=== PATIENT | male | born 1940 | race Caucasian/White ===

== ENCOUNTER → 2019-06-23 09:35 | Outpatient (BNVA) | payer MEDICARE, OTHER, SELFPAY | PROVIDERS: Family Provider Family Medicine; Referring Provider Family Medicine; Visit Provider Specialist | DX: M25.561 Pain in right knee (principal); M17.11 Unilateral primary osteoarthritis, right knee | CPT/HCPCS: 73560; 73565 ==

== ENCOUNTER 2019-06-25 11:02 | Outpatient (CLI) | payer MEDICARE, OTHER, SELFPAY ==
--- NOTE | 2019-06-25 11:17 | CT_ITS ---
WS: [id number] CT ANGIOGRAM CEREBRAL AND CAROTID ARTERIES HISTORY: CVA TECHNIQUE: CT angiogram is performed of the carotid and cerebral arteries. During arterial injection imaging is obtained from the skull vertex to the aortic arch in 1.25 mm imaging. Coronal and sagittal reformats are submitted. Additional multi planar reformats of the carotid and cerebral arteries are submitted, MIP imaging also reviewed. NASCET criteria utilized. All CT scans at [facility] use at least one of these dose optimization techniques: automated exposure control; mA and/or kV ad justment per patient size (includes targeted exams where dose is matched to clinical indication); or iterative reconstruction. CONTRAST: Omnipaque 300; 95 mL IV. DLP: 2104.1 mGycm COMPARISON: None available. Beam hardening artifact through the anterior mediastinum from the patient's cardiac pacer/defibrillat or. Origins of the great vessels are poorly visualized. Carotid Angiogram: Right carotid: Common carotid artery: Mid to distal common carotid artery is normal caliber. Internal carotid artery: Small amount of calcified plaque at the bifurcation with no stenosis. There is additional calcification at the skull base. External carotid artery: Patent. Left carotid: Common carotid artery: Proximal common carotid artery is obscured by artifact. Mid to distal common c arotid artery is patent. Internal carotid artery: Calcified plaque is mild at the bifurcation. No significant stenosis. Additi onal calcified plaque in the ICA to the petrous ridges. External carotid artery: Patent. Right vertebral artery: Unremarkable. Left vertebral artery: Dominant vertebral artery and arises normally from the LEFT subclavian artery. Subclavian arteries: Proximal subclavian arteries are both poorly visualized due to beam hardening ar tifact through the upper thorax. No abnormality is identified. Upper thorax: Negative. Thyroid gland: Poorly visualized. Osseous structures: 5 mm anterolisthesis of C5. Vertebral bodies at the cervical thoracic junction ar e poorly visualized. CEREBRAL ANGIOGRAM: Noncontrast imaging performed through the brain. There is a prior RIGHT occipital lobe infarct. Mild chronic microvascular ischemic disease. Mild atrophy. Intracranial vertebral arteries: Normal with no significant atherosclerosis. Basilar artery: No significant stenosis or occlusion. No aneurysm. Intracranial Internal carotid arteries: Calcified plaque bilaterally through the petrous portions of the internal carotid arteries. Additional scattered plaque in the cavernous sinuses and supraclinoid carotid artery. No aneurysm or stenosis. Middle cerebral arteries: Normal. Anterior cerebral arteries and ACOM: Normal. Posterior cerebral arteries and PCOM's: Normal. Dural venous sinuses are normally enhancing. Mastoid air cells: Increased soft tissue and fluid in the RIGHT mastoid air cells. LEFT mastoid air c ells are clear. Paranasal sinuses: Septation in the RIGHT maxillary sinus. There is a small mucous retention cyst in the floor the RIGHT maxillary sinus. Calvarium: Normal. CT/CT angio headneck* [id number] IMPRESSION: 1. No significant carotid artery stenosis. There is calcified plaque at the bi furcations and also through the intracranial carotid arteries. Stenosis much le ss than 50%. 2. Unremarkable [place] of [place]. No aneurysms or occlusions. 3. Prior RIGHT occipital lobe infarct and mild chronic microvascular ischemic disease.
[2019-06-25] MEDS: iohexol 350 mg/mL 100 mL Btl IV (12:01)
== END 2019-06-25 11:03 | disposition home or self-care (01) ==
LOC: RADWPI 11:13
PROVIDERS: Family Provider Family Medicine; PCP Family Medicine; Visit Provider Family Medicine
DX: I63.9 Cerebral infarction, unspecified (principal)
CPT/HCPCS: 70496; 70498; Q9967

== ENCOUNTER 2019-06-29 13:36 | Outpatient (RCR) | payer MEDICARE, OTHER, SELFPAY | END 2019-07-24 23:59 | disposition home or self-care (01) | LOC: SPT 13:36 | PROVIDERS: Family Provider Family Medicine; PCP Family Medicine; Referring Provider Specialist; Visit Provider Specialist | DX: M17.0 Bilateral primary osteoarthritis of knee (principal); R26.89 Other abnormalities of gait and mobility; R26.81 Unsteadiness on feet | CPT/HCPCS: 97110; 97162 ==

== ENCOUNTER 2019-07-25 06:00 | Outpatient (RCR) | payer MEDICARE, OTHER, SELFPAY | END 2019-08-24 23:59 | disposition home or self-care (01) | LOC: SPT 06:00 | PROVIDERS: Family Provider Family Medicine; PCP Family Medicine; Referring Provider Specialist; Visit Provider Specialist | DX: M17.0 Bilateral primary osteoarthritis of knee (principal) | CPT/HCPCS: 97110 ==

== ENCOUNTER 2020-08-30 08:38 | Outpatient (CLI) | payer MEDICARE, OTHER, SELFPAY ==
--- NOTE | 2020-08-30 08:55 | CT_ITS ---
WS: [id number] CT HEAD WITH AND WITHOUT CONTRAST HISTORY: CVA TECHNIQUE: Noncontrast 2.5 mm axial images obtained from the vertex to the skull base. Additional saúl ging performed at 2.5 mm axial images status post IV contrast. Bone and soft tissue windows are revie wed. All CT scans at [facility] use at least one of these dose optimization techniques: a utomated exposure control; mA and/or kV adjustment per patient size (includes targeted exams where do se is matched to clinical indication); or iterative reconstruction. CONTRAST: Omnipaque 300; 95 mL IV. DLP: 1984.08 mGycm COMPARISON: 02/02/2016 No acute intracranial hemorrhage, edema or midline shift. Prior remote infarct involving the RIGHT occipital and RIGHT frontal lobe. Similar in appearance to 2015 examination. Mild chronic microvascular ischemic changes. No enhancing masses or vascular malformations. Dural venous sinuses are normally enhancing. Small caliber distal RIGHT vertebral artery but it is patent. Small amount of calcified plaque throug h the cavernous sinuses. No occlusions or aneurysm. Paranasal sinuses as visualized: Clear. Mastoid air cells: Increased fluid in mastoid air cells bilaterally. Calvarium and scalp: Intact. CT/CT head wo/w con [id number] IMPRESSION: 1. No acute intracranial hemorrhage or edema. 2. 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 3. No aneurysm or occlusion of the intracranial carotid arteries. 4. Mild atherosclerosis intracranial carotid arteries.
[2020-08-30 09:23] LABS: Blood Urea Nitrogen 16 mg/dL (8-23)
[2020-08-30] MEDS: iohexol 300 mg/mL 100 mL Btl IV (09:32)
== END 2020-08-30 08:39 | disposition home or self-care (01) ==
LOC: RADWPI 08:54
PROVIDERS: PCP Family Medicine; Visit Provider Family Medicine
DX: I63.9 Cerebral infarction, unspecified (principal); I65.23 Occlusion and stenosis of bilateral carotid arteries
CPT/HCPCS: 70470; 82565; 84520; Q9967

== ENCOUNTER → 2021-08-15 13:39 | Outpatient (BNVA) | payer MEDICARE, SELFPAY | PROVIDERS: PCP Family Medicine; Visit Provider Internal Medicine Cardiovascular Disease | DX: I25.810 Atherosclerosis of coronary artery bypass graft(s) without angina pectoris (principal); I11.0 Hypertensive heart disease with heart failure; I50.9 Heart failure, unspecified | CPT/HCPCS: 99214 ==

== ENCOUNTER 2021-09-04 06:00 | Outpatient (RCR) | payer MEDICARE, SELFPAY | END 2021-09-22 23:59 | disposition home or self-care (01) | LOC: SPT 06:00 | PROVIDERS: PCP Family Medicine; Referring Provider Family Medicine; Visit Provider Family Medicine | DX: R26.9 Unspecified abnormalities of gait and mobility (principal) | CPT/HCPCS: 97110; 97161 ==

== ENCOUNTER 2021-09-23 06:00 | Outpatient (RCR) | payer MEDICARE, SELFPAY | END 2021-10-04 23:59 | disposition home or self-care (01) | LOC: SPT 06:00 | PROVIDERS: PCP Family Medicine; Referring Provider Family Medicine; Visit Provider Family Medicine | DX: R26.9 Unspecified abnormalities of gait and mobility (principal) | CPT/HCPCS: 97110 ==

== ENCOUNTER → 2021-12-27 10:14 | Outpatient (BNVA) | payer MEDICARE, SELFPAY | PROVIDERS: PCP Family Medicine; Visit Provider Family Medicine | DX: E11.9 Type 2 diabetes mellitus without complications (principal); M54.9 Dorsalgia, unspecified; G89.29 Other chronic pain; E78.5 Hyperlipidemia, unspecified; I10 Essential (primary) hypertension; I25.810 Atherosclerosis of coronary artery bypass graft(s) without angina pectoris | CPT/HCPCS: 80053; 80061; 83036; 83721; 85025 ==

== ENCOUNTER → 2022-02-15 09:52 | Outpatient (BNVA) | payer MEDICARE, SELFPAY | PROVIDERS: PCP Family Medicine; Visit Provider Internal Medicine Cardiovascular Disease | DX: I25.810 Atherosclerosis of coronary artery bypass graft(s) without angina pectoris (principal); I25.9 Chronic ischemic heart disease, unspecified; I11.0 Hypertensive heart disease with heart failure; I50.20 Unspecified systolic (congestive) heart failure; E78.5 Hyperlipidemia, unspecified; Z95.810 Presence of automatic (implantable) cardiac defibrillator; Z87.891 Personal history of nicotine dependence | CPT/HCPCS: 93284; 99214 ==

== ENCOUNTER → 2022-04-04 09:18 | Outpatient (BNVA) | payer MEDICARE, SELFPAY | PROVIDERS: PCP Family Medicine; Visit Provider Family Medicine | DX: E78.5 Hyperlipidemia, unspecified (principal); I10 Essential (primary) hypertension; E11.9 Type 2 diabetes mellitus without complications; G89.29 Other chronic pain; I25.9 Chronic ischemic heart disease, unspecified; M54.9 Dorsalgia, unspecified | CPT/HCPCS: 80053; 80061; 83036; 83721 ==

== ENCOUNTER → 2022-08-16 09:42 | Outpatient (BNVA) | payer MEDICARE, SELFPAY | PROVIDERS: PCP Family Medicine; Visit Provider Nurse Practitioner Family | DX: I25.810 Atherosclerosis of coronary artery bypass graft(s) without angina pectoris (principal); Z95.810 Presence of automatic (implantable) cardiac defibrillator; Z87.891 Personal history of nicotine dependence; I11.0 Hypertensive heart disease with heart failure; I50.20 Unspecified systolic (congestive) heart failure; Z79.82 Long term (current) use of aspirin | CPT/HCPCS: 99214 ==

== ENCOUNTER → 2022-09-27 09:29 | Outpatient (BNVA) | payer MEDICARE, SELFPAY | PROVIDERS: PCP Family Medicine; Visit Provider Family Medicine | DX: I25.10 Atherosclerotic heart disease of native coronary artery without angina pectoris (principal); R07.9 Chest pain, unspecified; E78.5 Hyperlipidemia, unspecified; I10 Essential (primary) hypertension | CPT/HCPCS: 80053; 83880; 84484; 85025 ==

== ENCOUNTER → 2022-10-01 09:31 | Outpatient (BNVA) | payer MEDICARE, SELFPAY | PROVIDERS: PCP Family Medicine; Visit Provider Internal Medicine Cardiovascular Disease | DX: Z45.02 Encounter for adjustment and management of automatic implantable cardiac defibrillator (principal) | CPT/HCPCS: 93296 ==

== ENCOUNTER 2022-10-02 06:56 | Outpatient (CLI) | payer MEDICARE, SELFPAY ==
--- NOTE | 2022-10-02 07:15 | USCV_ITS ---
Sonu Ferrer (Allen) Age: 82 Gender: M : 1940 Exam Date: 10/02/2022 07:20 Ordering Phys: Mitesh David MD Technologist: ASH Exam Location: [place] Indication: CHEST PAIN BP: 165 / 65 HR: 60 Rhythm: Sinus Technical Quality: Adequate MEASUREMENTS (Male / Female) Normal Values 2D ECHO LV Ejection Fraction MOD 2C 42.6 % LV Ejection Fraction 2C AL 44.6 % LA Diameter 3.9 cm LA Width 4.4 cm LA Height 5.1 cm RA Width 4.2 cm RA Height 5.1 cm Aorta at Sinotubular Diameter 3.3 cm M-MODE Aortic Annulus Diameter 2.8 cm LA Ao Ratio MM 1.2 MV E Point Septal Separation 1.9 cm DOPPLER AV Peak Velocity 129.0 cm/s LVOT Peak Velocity 85.0 cm/s MV Peak Velocity 103.0 cm/s MV Area PHT 2.7 cm squared Mitral E to A Ratio 0.7 MV E' Velocity 32.5 cm/s Mitral E to MV E' Ratio 12.6 Mitral E to LV E' Lateral Ratio 12.1 Mitral E to LV E' Septal Ratio 13.4 TR Peak Velocity 139.8 cm/s TR Peak Gradient 7.8 mmHg TR Mean Velocity 112.5 cm/s TR Mean Gradient 5.3 mmHg TR Velocity Time Integral 33.3 cm TV Peak E Velocity 43.0 cm/s Right Atrial Pressure 8.0 mmHg Pulmonary Artery Systolic Pressu 15.8 mmHg FINDINGS Left Ventricle Left ventricle is normal in size. LV systolic function is moderately reduced with EF of 35-40%. Moderate global hypokinesis is seen. Severe hypokinesis to akinesis of the apical wall. Grade 1 diastolic dysfunction Right Ventricle Normal in size and function Right Atrium Normal in size Left Atrium Normal in size Mitral Valve Grossly normal. Trace mitral regurgitation. Aortic Valve Aortic valve is thickened. No significant stenosis or regurgitation seen Tricuspid Valve Mild tricuspid regurgitation. Insufficient TR jet to calculate RVSP. Pulmonic Valve Not well visualized Pericardium Normal Aorta Normal in size IVC Appears to be normal CONCLUSIONS LV systolic function is moderately reduced with EF of 35 to 40%. Above mentioned wall motion abnormalities. Trace mitral regurgitation Mild tricuspid regurgitation. Compared to prior echocardiogram from 2018, no significant changes are seen. Severiano Whalen MD (Electronically Signed) Final Date: 03 Oct 2022 13:20 S
[2022-10-02] MEDS: perflutren protein-a microsphr 0.22 mg/mL SDV 3 mL IV (08:02)
== END 2022-10-02 06:57 | disposition home or self-care (01) ==
PROVIDERS: PCP Family Medicine; Visit Provider Family Medicine
DX: R07.9 Chest pain, unspecified (principal); I07.1 Rheumatic tricuspid insufficiency
CPT/HCPCS: C8929; Q9956

== ENCOUNTER → 2022-10-03 12:46 | Outpatient (BNVA) | payer MEDICARE, SELFPAY | PROVIDERS: PCP Family Medicine; Visit Provider Internal Medicine | DX: I25.810 Atherosclerosis of coronary artery bypass graft(s) without angina pectoris (principal); I25.9 Chronic ischemic heart disease, unspecified; I11.0 Hypertensive heart disease with heart failure; I50.20 Unspecified systolic (congestive) heart failure; E78.5 Hyperlipidemia, unspecified; Z95.810 Presence of automatic (implantable) cardiac defibrillator; Z87.891 Personal history of nicotine dependence | CPT/HCPCS: 99214 ==

== ENCOUNTER 2022-10-08 07:16 | Outpatient (CLI) | payer MEDICARE, SELFPAY ==
[2022-10-08] VITALS (35 sets, daily range): BP systolic 114–147; BP diastolic 59–94; PULSE 60–116; RESP 13–23; TEMP 36.6–36.7; O2SAT 90–98; BMI 35.6
--- NOTE | 2022-10-08 07:30 | XACV_ITS ---
Exam Room: 2 Ht: 185 cm Wt: 122 kg BSA: 2.55 m2 Gender: Male : 1940 Any Known Allergies: Other Exam Priority: Routine Procedure(s): Procedure Description: Diagnostic procedure Procedure Description: PCI procedure Procedure Description: Drug Eluting Coronary Stent Procedure Description: PTCA Procedure Description: Miscellaneous Procedure Description: ACT Procedure Description: Coronary Angiography Diagnostic Cath Status: Elective Diagnostic Findings * Left Main has no significant disease. * Left circumflex artery is a large sized vessel. It has a mid vessel prior stent. Proximal to the prior stent there is a severe 80% stenosis. * P * roximal Circumflex: significant 80% stenosis, JANEE: 3 flow. * BYPASS GRAFTS: * GE to LAD: Patent. SVG to RCA: Occluded. SVG to diagonal artery: Occluded.. * Proximal Left Anterior Descending: chronic total occlusion, JANEE: 0 flow. * Proximal Right Coronary Artery: chronic total occlusion, JANEE: 0 flow. * Coronary angiography shows right dominance. PCI Status: Elective PCI Indication: Other Interventional Findings * Procedure detail: * We engaged * left main artery with XB 3.5 guide catheter. IV heparin was administered to maintain anticoagulation. 0.014 run-through guidewire was used to cross proximal left circumflex artery stenosis and was put in distal vessel. We predilated the artery with 3.0 x 15 mm semicompliant balloon. This was followed by placement of 4.0 x 18 mm resolute [place] drug-eluting stent. This was followed by post dilation with a 4.0 x 12 mm NC balloon at high pressure. Final angiogram was performed that showed excellent stent expansion, no residual stenosis and JANEE-3 flow. Guidewire and guide catheter were removed. Patient left the [place] in a stable condition.. * Proximal Circumflex: 80% stenosis treated with a AB TREK 3.00X15 RX BALLOON, MDT R BRENTON 4.0X18 ANUP, and MDT SHERRIE EUPHORA RX [id number] BALLOON. 0% residual stenosis, JANEE: 3 flow. Conclusions 1. Severe proximal left circumflex artery stenosis s/p successful revascularization with ANUP x1. 2. Severe 3. multivessel [place] artery coronary artery disease. Patent GE to LAD.. 4. Patient has prior CABG. 5. Proximal Circumflex was treated with a Balloon, Drug Eluting Stent, and Balloon. Recommendations * Dual antiplatelet therapy with aspirin and Plavix for atleast 1 year. * High intensity statin therapy. * Outpatient cardiology follow up in 2-4 weeks. Interventional RX Recommendation: PCI w/o planned CABG Diagnostic RX Recommendation: PCI w/o planned CABG Anticoagulation: Heparin Pressures Phase:Rest AO : 123 / 59 ( 86 ) @ 10:24:00 AM 91 / 62 ( 77 ) @ 10:32:00 AM 132 / 62 ( 93 ) @ 10:35:00 AM 109 / 63 ( 84 ) @ 10:41:00 AM Clinical Evaluation EBL: 5mL-10mL Procedural Details Procedure Consent Obtained. Admit Source: Out Patient. Pre-Procedure Time Out. Identified patient by full name and date of as verbalized by the patient/guarantor. Does the consent match the physician's order: Yes. Accurate & Complete Informed Consent: Yes. Inpatient/Outpatient History & Physical on Chart: Yes. If H&P is completed, is and addenduem needed: No; If yes, is the addendum complete: N/A. Visualize and Verify Site with Patient/Guarantor: N/A. Relevant Radiology Images available: N/A. Pre-op teaching completed and patient verbalized understanding. The risks, benefits, and alternatives of sedation and/or procedure were discussed by physician. The patient agrees to continue. Procedure started. [facility] Clinical Fraility Score: 5: Mildly Frail. [place] Indications: Worsening Angina. Chest Pain Symptom Assessment: Typical Angina Symptoms. Correct patient, site and procedure confirmed by cath team. Current diagnosis: Unstable angina. PERRLA. Strong, equal hand acid leveler bilaterally. Lungs clear x 5 lobes. IV Site on Arrival: 20 gauge in the left anticubital. IV Fluids: 0.9% NaCl at KVO. 0 mL infused prior to laboratory equipment cleaner. Pre Procedural Pulses: right dorsalis pedis was 2+. Pre Procedural Pulses: left dorsalis pedis was 3+. Pre Procedural Pulses: bilateral posterior tibial was 1+. Oxygen started at 2liters/min via nasal canula. right groin was prepped with chloroprep then draped in the usual sterile fashion. left groin was prepped with chloroprep then draped in the usual sterile fashion. Baseline sample Acquired. HR: 60 BPM. Physician notified. Physician arrived. Physician scrubbed in. Immediate Pre-Procedure Time Out. Correct Patient: Yes; Correct Procedure: Yes; Correct Site: Yes; Correct Patient Position: Yes; Correct Supplies: Yes; Dried Flammable Prep: Yes; Blood Products Available: N/A;. Lidocaine 1% infiltrated to the right groin. Unable to obtain access in R groin. L groin area prepped for access. Lidocaine 1% infiltrated to the left groin. Arterial access obtained with micropuncture set. A 5 polish JL4 catheter in over wire. Multiple views taken of left coronary artery. Current Diagnosis : Unstable angina. Catheter removed over the standard wire. A 5 polish JR4 catheter in over wire. Multiple views taken of right coronary artery. SVG to Diaganol occluded. Exchange wire inserted and catheter directed to the GE graft. Exchange wire out. Catheter redirected to the SVG graft. Glidewire inserted. Glidewire removed. GE to LAD visualized. Catheter removed over the exchange wire. A 5 polish MPA1 catheter in over wire. SVG to RCA occluded. Catheter removed over the exchange wire. 6 polish XB 3.5 guide catheter was inserted over the wire. Runthrough guidewire was advanced through the guide catheter to lesion in the prox Circ. Balloon inserted to lesion in the prox Circ. Inflation number : 1 A AB TREK 3.00X15 RX BALLOON was prepped and advanced across the Prox CX , then inflated to 12 ROCHELLE for 0:10 seconds. Inflation number: 2 The AB TREK 3.00X15 RX BALLOON was reinflated across the Prox CX, to 12 ROCHELLE for 0:08 seconds. Inflation number: 3 The AB TREK 3.00X15 RX BALLOON was reinflated across the Prox CX, to 12 ROCHELLE for 0:09 seconds. Inflation number: 4 The AB TREK 3.00X15 RX BALLOON was reinflated across the Prox CX, to 14 ROCHELLE for 0:22 seconds. Balloon out. Results checked. Stent inserted to lesion in the prox Circ. Inflation Number : 5 A MDT R BRENTON 4.0X18 ANUP -Lot Number# [id number] Exp 03/27/2024 was prepped and advanced across the Prox CX. The stent was deployed at 12 ROCHELLE for 0:20 seconds. Stent balloon out over wire. Results checked. Balloon inserted to lesion in the prox Circ. Inflation number : 6 A MDT NC EUPHORA RX [id number] BALLOON was prepped and advanced across the Prox CX , then inflated to 20 ROCHELLE for 0:15 seconds. Inflation number: 7 The MDT NC EUPHORA RX [id number] BALLOON was reinflated across the Prox CX, to 20 ROCHELLE for 0:10 seconds. Balloon out. Results checked. Wire out. Results checked. Guide catheter out. ACT drawn. Results 380 seconds. Therapeutic limits - pre-heparin administration 90-150 seconds and monitoring heparin during a vascular procedure >250 seconds. ACT drawn. Results seconds. Therapeutic limits - pre-heparin administration 90-150 seconds and monitoring heparin during a vascular procedure >250 seconds. A Suture was successful obtaining hemostatsis at the Left Femoral artery insertion site. Sheath(s) sutured into position with 2-0 silk and sterile 4x4's and Op-site applied over the site. No oozing or signs and symptoms of hematoma noted. Post Procedure: Pulses reassessed and unchanged. PERRLA. Strong, equal hand acid leveler bilaterally. No VTE prophylaxis required. Post-op diagnosis: Severe Prox Circumflex stenosis S/P successful PCI x1 stent. Medication's Wasted: Lidocaine 1% = 1 mL. Medication's Wasted: Heparin = 3000 u. Total IV fluids: 65 mL. Complications: none. Estimated blood loss: 5mL-10mL. Responsiveness - Normal response to verbal stimuli; alert and oriented, PERRLA. Airway - Unaffected, no intervention required; spontaneous ventilation. Circulation: W/N/L, pulses unchanged. Nausea/Vomiting: No. Procedure completed. Patient transferred by bed to CPRU. Vital chart was stopped. Access Site Site: Left Femoral artery Sheath Size: 6 Fr Hemostasis Method: Suture Hemostasis Success: Successful Procedure Medications Start: 9:03 AM Stop: 9:03 AM Medication: Versed Amount: 1 mg Route: I.V. Start: 9:03 AM Stop: 9:03 AM Medication: Fentanyl Amount: 50 mcg Route: I.V. Start: 9:04 AM Stop: 9:04 AM Medication: Versed Amount: 1 mg Route: I.V. Start: 9:23 AM Stop: 9:23 AM Medication: Heparin Amount: 5000 units Route: I.V. Start: 9:30 AM Stop: 9:30 AM Medication: Heparin Amount: 5000 units Route: I.V. Start: 9:35 AM Stop: 9:35 AM Medication: Fentanyl Amount: 25 mcg Route: I.V. Start: 9:35 AM Stop: 9:35 AM Medication: Versed Amount: 1 mg Route: I.V. Start: 9:37 AM Stop: 9:37 AM Medication: Heparin Amount: 1000 units Route: I.V. Start: 9:47 AM Stop: 9:47 AM Medication: Plavix Amount: 300 mg Route: P.O. I, the attending physician, have reviewed and verified all procedure medications. Yes, all medications given per verbal order History/Risk Factors Hypertension: Yes Dyslipidemia: Yes Peripheral Arterial Disease (PAD): No Myocardial Infarction (IL): Yes Obesity: Yes Renal Disease: No Prior Interventions PCI: Yes CABG: Yes Valve Surgery: No Date of PCI: 09/27/2015 Report Signatures Finalized by Severiano Whalen MD on 10/08/2022 10:12 AM
[2022-10-08] MEDS: aspirin 325 mg Tablet PO (07:50)
[2022-10-08] MEDS: diphenhydrAMINE 50 mg Capsule PO (07:50)
--- NOTE | 2022-10-08 08:56 | P.HPUD_ITS ---
Surgery/Procedure H&P Update DATE OF PROCEDURE: October 08, 2022 DATE H&P PERFORMED: 10/03/22 H&P UPDATE INFORMATION: I have reviewed H&P completed within last 30 days, I have examined patient prior to procedure and No changes to prior documentation PREOP DIAGNOSIS: Worsening angina PRIMARY INDICATION FOR PROCEDURE: Worsening angina PLANNED PROCEDURE: Operation Date: 10/08/22 08:30 Proposed Procedures p [facility] 15347,R07.9, I20.0(Left) - Severiano Whalen M.D Possible percutaneous coronary intervention PATIENT REASSESSED PRIOR TO SEDATION, WITH NO CHANGE NOTED: Yes PHYSICAL EXAM: alert, oriented x 3, clear to auscultation bilaterally and regular rate & rhythm AIRWAY EVAL/ANESTHESIA PLAN: normal airway, ASA III, Local Anesthesia, Risks, benefits & alternatives of sedation and/or procedure discussed and Patient agrees to continue as planned ADDITIONAL INFORMATION: Moderate sedation
--- NOTE | 2022-10-08 10:00 | PC.NURSE ---
Recovery Note Received pt post cath procedure. Alert and oriented X 3, breathing even and non-labored no room air. Pt denies pain. Pt has left femoral sheath to pressure bag, site asymptomatic . Pt educated on bedrest status. Pt placed on bedside site monitor, family at bedside. call light in reach, pt denies needs at this time.
--- NOTE | 2022-10-08 12:12 | PC.NURSE ---
ACT drawn from left groin arterial sheath to assess for sheath removal. ACT 215, Dr. Whalen notified and received telephone orders to keep sheath in place and redraw ptt in 2 hrs.
--- NOTE | 2022-10-08 13:14 | PC.NURSE ---
Patient transferred to room 112-2 via bed. Sheath site check with Ruthy Guerra RN.
--- NOTE | 2022-10-08 13:59 | PC.NURSE ---
received into room 112-1 via bed,from sanitation laborer at 1310.report received.pt is alert and awake and oriented x 4.av paced on monitor.denies pain at present.left femoral arterial sheath intact to pressurized system.drsg is dry and intact.no hematoma noted.left leg is warm to touch and with brisk capillary refill.palpable dp pulse noted.pt instructed in activity restrictions s/p femoral artery procedure...and instructed to notify staff for any bleeding,pain ,numbness...or for any concerns at all.pt verb understanding of instructions
[2022-10-08 15:08] LABS: Partial Thromboplastin Time 35.4 SECONDS (23.9-36.7)
[2022-10-08] MEDS: fentaNYL 50 mcg/mL INJ 2mL IVP (15:28)
--- NOTE | 2022-10-08 16:19 | PC.NURSE ---
50 mcg fentanyl given prior to procedure.left arterial femoral sheath removed at 1550.manual pressure applied x 20 min.vss through-out procedure.left leg remained warm to touch and palpable dp pulse noted.no hematoma formation noted.site dressed with 2x2 gauze and secured with biocclusive drsg.pt instructed in activity restrictions s/p arterial sheath removal.and instructed to notify staff for any bleeding,pain,numbness...or for any concerns at all.pt verb understanding of instructions.
[2022-10-08] MEDS: carvedilol 25 mg Tablet PO (20:07)
[2022-10-08] MEDS: temazepam 15 mg Capsule PO (20:07)
[2022-10-08] MEDS: amlodipine 5 mg Tablet 2.5 MG PO (20:07)
[2022-10-08] MEDS: HYDROcodone-acetaminophen 10-325 mg Tablet 1 TAB PO (20:07)
[2022-10-08] MEDS: atorvastatin 40 mg Tablet 20 MG PO (20:07)
--- NOTE | 2022-10-08 20:42 | PC.NURSE ---
Dressing to left groin remains c,d,i without s/s of bleeding or hematoma formation observed. Patient denies pain to site. Will continue to monitor.
[2022-10-09] VITALS: BP 115/55; PULSE 76; RESP 16; TEMP 36.8; O2SAT 93
--- NOTE | 2022-10-09 00:24 | PC.NURSE ---
Dressing to left groin remains c,d,i with no s/s of bleeding or hematoma formation observed. Patient resting comfortably. Will continue to monitor.
--- NOTE | 2022-10-09 01:49 | PC.NURSE ---
Dressing to left groin continues to remain c,d,i with no s/s of bleeding or hematoma formation observed.
[2022-10-09 04:00] VITALS: BP 119/65; PULSE 63; RESP 16; TEMP 36.5; O2SAT 94
[2022-10-09 06:00] VITALS: PULSE 62
[2022-10-09 06:05] LABS: Basophils # 0.1 10^3/uL (0.0-0.1); Basophils % 0.9 %; Eosinophils # 0.2 10^3/uL (0.0-0.8); Eosinophils % 2.7 %; Hemoglobin 13.7 g/dL (11.7-16.6); Lymphocytes # 1.4 10^3/uL (0.8-4.8); Lymphocytes % 23.4 %; Mean Corpuscular HGB Conc 32.6 g/dL (30.0-36.0); Mean Corpuscular Hemoglobin 29.2 pg (28.0-34.0); Mean Corpuscular Volume 89.6 fl (80-94); Mean Platelet Volume 9.4 fL (7.4-10.4); Monocytes # 0.5 10^3/uL (0.2-0.9); Monocytes % 7.7 %; Neutrophils # 3.78 10^3/uL (1.8-7.7); Nucleated Red Blood Cells % 0 %; Platelet Count 153 10^3/cmm (130-400); Red Blood Count 4.69 10^6/uL (4.1-5.3); Red Cell Distribution Width 13.9 % (12.1-15.1); White Blood Count 5.8 10^3/uL (4.0-10.0)
[2022-10-09 06:37] LABS: Anion Gap 15.8 (5-19); Blood Urea Nitrogen 10 mg/dL (8-23); Calcium 9.3 mg/dL (8.5-10.5); Carbon Dioxide 24 mmol/L (22-29); Chloride 103 mmol/L (98-107); Glucose 128 mg/dL (65-115); Osmolality Calculated 289 mOsm/kg (285-295); Potassium 3.8 mmol/L (3.5-5.1); Sodium 139 mmol/L (136-145)
[2022-10-09 08:00] VITALS: BP 124/68; PULSE 67; RESP 18; O2SAT 96
--- NOTE | 2022-10-09 08:57 | P.DS_ITS ---
Discharge Providers Date of Admission: 10/08/2022 Date of Discharge: October 09, 2022 Attending Provider at Admission: Severiano Whalen MD Attending Provider at Discharge: Severiano Whalen M.D Primary Care Provider: Mitesh David MD Reason for Visit Reason for Visit: R07.9, I20.0 Brief History: 82-year-old man with past medical history of CABG has been having worsening chest pain. Plan for coronary angiogram with possible percutaneous coronary intervention. Hospital Course Hospital Course Coronary angiogram showed severe proximal left circumflex artery stenosis status post PCI with ANUP x1.Patient stayed in the hospital overnight and was stable for discharge on dual antiplatelet therapy. Physical Exam Narrative: GENERAL: Patient is alert, awake and oriented x3. [] NECK: No jugular vein distension. [] HEENT: No cyanosis. No icterus. No pallor. [] HEART: Regular S1 and S2. No murmur, rub or gallop. [] LUNGS: Clear to auscultate bilaterally. [] CENTRAL NERVOUS SYSTEM: Grossly nonfocal. [] EXTREMITIES: Lower extremities with 1+ edema bilaterally. Pulses palpable in the lower extremities, both dorsalis pedis and posterior tibial. 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 Routine Exams 10/08/22 07:30 Completed Laboratory Results WBC 5.8 10^3/uL (4.0-10.0) 10/09/22 05:33 RBC 4.69 10^6/uL (4.1-5.3) 10/09/22 05:33 Hgb 13.7 g/dL (11.7-16.6) 10/09/22 05:33 Hct 42.0 % (42.0-52.0) 10/09/22 05:33 MCV 89.6 fl (80-94) 10/09/22 05:33 MCH 29.2 pg (28.0-34.0) 10/09/22 05:33 MCHC 32.6 g/dL (30.0-36.0) 10/09/22 05:33 RDW 13.9 % (12.1-15.1) 10/09/22 05:33 Plt Count 153 10^3/cmm (130-400) 10/09/22 05:33 MPV 9.4 fL (7.4-10.4) 10/09/22 05:33 Neut % (Auto) 65.0 % 10/09/22 05:33 Lymph % (Auto) 23.4 % 10/09/22 05:33 [place] % (Auto) 7.7 % 10/09/22 05:33 Eos % (Auto) 2.7 % 10/09/22 05:33 Baso % (Auto) 0.9 % 10/09/22 05:33 Neut # (Auto) 3.78 10^3/uL (1.8-7.7) 10/09/22 05:33 Lymph # (Auto) 1.4 10^3/uL (0.8-4.8) 10/09/22 05:33 [place] # (Auto) 0.5 10^3/uL (0.2-0.9) 10/09/22 05:33 Eos # (Auto) 0.2 10^3/uL (0.0-0.8) 10/09/22 05:33 Baso # (Auto) 0.1 10^3/uL (0.0-0.1) 10/09/22 05:33 Nucleated RBC % (auto) 0 % 10/09/22 05:33 Nucleated RBCs # 0.0 /100WBC 10/09/22 05:33 APTT 35.4 SECONDS (23.9-36.7) 10/08/22 14:48 Sodium 139 mmol/L (136-145) 10/09/22 05:33 Potassium 3.8 mmol/L (3.5-5.1) 10/09/22 05:33 Chloride 103 mmol/L (98-107) 10/09/22 05:33 Carbon Dioxide 24 mmol/L (22-29) 10/09/22 05:33 Anion Gap 15.8 (5-19) 10/09/22 05:33 BUN 10 mg/dL (8-23) 10/09/22 05:33 Creatinine 0.6 mg/dL (0.7-1.2) L 10/09/22 05:33 GFR Calculation Not Reportable 10/09/22 05:33 Glucose 128 mg/dL (65-115) H 10/09/22 05:33 Calculated Osmolality 289 mOsm/kg (285-295) 10/09/22 05:33 Calcium 9.3 mg/dL (8.5-10.5) 10/09/22 05:33 Vitals Last Vital Signs Temp 97.7 F 10/09/22 04:00 Pulse 62 10/09/22 06:00 Resp 16 10/09/22 04:00 BP 119/65 10/09/22 04:00 Pulse Ox 94 10/09/22 04:00 O2 Del Method Room Air 10/09/22 04:00 Discharge Plan Discharge Patient Disposition: Home Prescriptions: No Action aspirin 325 mg tablet 325 mg PO QDAY cyanocobalamin (vitamin B-12) 1,000 mcg capsule 1,000 mcg PO QDAY Vitamin D3 Complete 18 mg iron-800 mcg-150 mg tablet 1 tab PO QDAY potassium gluconate 595 mg (99 mg) tablet extended release PO DAILY Glucosamine PO hydrocodone-acetaminophen 7.5-325 mg tablet 1 tab PO Q6H PRN (Reason: pain) 30 Days Qty: 120 0RF amlodipine 2.5 mg tablet 2.5 mg PO BID Qty: 180 3RF (DME) Right lower leg brace See Rx Instructions .Route .MEDSUPPLY Qty: 1 0RF Rx Instructions: Brace to help with right foot drop. isosorbide mononitrate 120 mg tablet extended release 24 hr 120 mg PO DAILY 90 Days Qty: 90 11RF clopidogrel 75 mg tablet See Rx Instructions .ROUTE .COMPLEX Qty: 90 3RF Dose Instruction: Take 1 tablet by mouth once daily Rx Instructions: Take 1 tablet by mouth once daily hydrocodone-acetaminophen 10-325 mg tablet 1 tab PO Q6H PRN (Reason: pain) 30 Days Qty: 120 0RF pravastatin 40 mg tablet 40 mg PO QDAY Qty: 90 3RF nitroglycerin [Nitrostat] 0.4 mg tablet, sublingual 0.4 mg SUBLINGUAL Q5M PRN (Reason: chest pain) Qty: 25 6RF Rx Instructions: Do not exceed 3 tabs carvedilol 25 mg tablet 25 mg PO BID Rx Instructions: Take 1/2 (12.5 mg) in am 1 tablet (25 mg) at night Discharge Orders: Discharge Order (Routine); Ordered 10/09/22 Ordered By: Severiano Whalen Referrals: Aleida Garza FNP [Nurse Practitioner] - 10/16/22 9:00 am (Please follow-up appointment with Aleida Garza on October 16 at 9:00a.m. If you have any questions or need to reschedule. Please call ) Diet: Cardiac Activity: Increase activity as tolerated Patient Instructions: Coronary Angioplasty (DC), DASH Eating Plan (DC), Chest Pain Stoplight, Post Angiogram Home Care Instructions Discharge Date/Time: 10/09/22 10:15 Discharge Attestations Time Spent in Discharge Care*: less than 30 min Quality Metrics Clinical Quality Measures [ No reported AMI, CVA or VTE this stay] Coding Level of Care Code Acute Code for Chg Fwd Diagnoses
[2022-10-09] MEDS: clopidogrel 75 mg Tablet PO (09:34)
[2022-10-09] MEDS: carvedilol 25 mg Tablet PO (09:34)
[2022-10-09] MEDS: amlodipine 5 mg Tablet 2.5 MG PO (09:34)
[2022-10-09] MEDS: aspirin 325 mg Tablet PO (09:34)
[2022-10-09 09:41] VITALS: BP 124/68; PULSE 67; RESP 18; O2SAT 96
--- NOTE | 2022-10-09 10:19 | PC.NURSE ---
Patients IV taken out at 10:00, tolerated well. Patient given verbal and written education on discharge instructions, verbalized understanding. Vitals stable. Patient taken out via wheelchair, left facility with at 10:15.
== END 2022-10-09 10:15 | disposition home or self-care (01) ==
LOC: CCL 07:22 → CSU 10-09 08:18
PROVIDERS: PCP Family Medicine; Visit Provider Internal Medicine
DX: E78.5 Hyperlipidemia, unspecified; I25.2 Old myocardial infarction; E66.01 Morbid (severe) obesity due to excess calories; Z68.35 Body mass index [BMI] 35.0-35.9, adult; Z79.02 Long term (current) use of antithrombotics/antiplatelets; I25.118 Atherosclerotic heart disease of native coronary artery with other forms of angina pectoris; Z79.82 Long term (current) use of aspirin; Z95.1 Presence of aortocoronary bypass graft; Z87.891 Personal history of nicotine dependence; E11.9 Type 2 diabetes mellitus without complications; I50.20 Unspecified systolic (congestive) heart failure; Z95.810 Presence of automatic (implantable) cardiac defibrillator; I11.0 Hypertensive heart disease with heart failure
CPT/HCPCS: 36415; 80048; 85025; 85347; 85730; 93455; 96361; 96365; 96376; 99152; 99153; C1725; C1769; C1874; C1887; C1894; C9600; J1644; J2250; J3010; J7030; Q0163; Q9967

== ENCOUNTER → 2022-10-22 13:51 | Outpatient (BNVA) | payer MEDICARE, SELFPAY | PROVIDERS: PCP Family Medicine; Visit Provider Family Medicine | DX: I25.10 Atherosclerotic heart disease of native coronary artery without angina pectoris (principal) | CPT/HCPCS: 80048; 85025 ==

== ENCOUNTER → 2022-10-30 10:27 | Outpatient (BNVA) | payer MEDICARE, SELFPAY | PROVIDERS: PCP Family Medicine; Visit Provider Nurse Practitioner Family | DX: I25.810 Atherosclerosis of coronary artery bypass graft(s) without angina pectoris (principal); I11.0 Hypertensive heart disease with heart failure; I50.20 Unspecified systolic (congestive) heart failure; Z87.891 Personal history of nicotine dependence | CPT/HCPCS: 99214 ==

== ENCOUNTER → 2022-11-20 10:41 | Outpatient (BNVA) | payer MEDICARE, SELFPAY | PROVIDERS: PCP Family Medicine; Visit Provider Family Medicine | DX: I25.10 Atherosclerotic heart disease of native coronary artery without angina pectoris (principal); I10 Essential (primary) hypertension | CPT/HCPCS: 80053; 83880; 85025 ==

== ENCOUNTER → 2022-11-22 10:41 | Outpatient (BNVA) | payer MEDICARE, SELFPAY | PROVIDERS: PCP Family Medicine; Referring Provider Family Medicine; Visit Provider Student in an Organized Health Care Education/Training Program | DX: M17.0 Bilateral primary osteoarthritis of knee (principal) | CPT/HCPCS: 73560; 73565; 99203 ==

== ENCOUNTER 2022-12-19 06:00 | Outpatient (CLI) | payer MEDICARE, SELFPAY | END 2022-12-19 06:01 | LOC: SPT 12-23 08:40 | PROVIDERS: PCP Family Medicine; Visit Provider Student in an Organized Health Care Education/Training Program | DX: Z46.89 Encounter for fitting and adjustment of other specified devices (principal); M17.0 Bilateral primary osteoarthritis of knee | CPT/HCPCS: 97760; L1851 ==

== ENCOUNTER → 2022-12-20 09:28 | Outpatient (BNVA) | payer MEDICARE, SELFPAY | PROVIDERS: PCP Family Medicine; Visit Provider Student in an Organized Health Care Education/Training Program | DX: M17.0 Bilateral primary osteoarthritis of knee; Z71.89 Other specified counseling | CPT/HCPCS: 20610; 99213 ==

== ENCOUNTER → 2023-02-14 08:59 | Outpatient (BNVA) | payer MEDICARE, SELFPAY | PROVIDERS: PCP Family Medicine; Visit Provider Internal Medicine | DX: I25.9 Chronic ischemic heart disease, unspecified (principal); I25.810 Atherosclerosis of coronary artery bypass graft(s) without angina pectoris; I11.0 Hypertensive heart disease with heart failure; I50.9 Heart failure, unspecified; E78.5 Hyperlipidemia, unspecified; Z95.810 Presence of automatic (implantable) cardiac defibrillator; Z87.891 Personal history of nicotine dependence | CPT/HCPCS: 99214 ==

== ENCOUNTER → 2023-02-19 12:47 | Outpatient (BNVA) | payer MEDICARE, SELFPAY | PROVIDERS: PCP Family Medicine; Visit Provider Family Medicine | DX: M54.9 Dorsalgia, unspecified (principal); G89.29 Other chronic pain; E78.5 Hyperlipidemia, unspecified; I10 Essential (primary) hypertension; I25.10 Atherosclerotic heart disease of native coronary artery without angina pectoris; E11.9 Type 2 diabetes mellitus without complications | CPT/HCPCS: 80053; 83036; 83880; 84550; 85025 ==

== ENCOUNTER → 2023-07-01 09:17 | Outpatient (BNVA) | payer MEDICARE, SELFPAY | PROVIDERS: PCP Family Medicine; Visit Provider Family Medicine | DX: I10 Essential (primary) hypertension (principal); I25.810 Atherosclerosis of coronary artery bypass graft(s) without angina pectoris; E78.5 Hyperlipidemia, unspecified; E11.9 Type 2 diabetes mellitus without complications; M54.9 Dorsalgia, unspecified; G89.29 Other chronic pain; I25.10 Atherosclerotic heart disease of native coronary artery without angina pectoris | CPT/HCPCS: 80053; 80061; 83036; 83721; 83880; 85025 ==

== ENCOUNTER → 2023-08-13 12:26 | Outpatient (BNVA) | payer MEDICARE, SELFPAY | PROVIDERS: PCP Family Medicine; Visit Provider Internal Medicine | DX: I25.9 Chronic ischemic heart disease, unspecified (principal); I25.810 Atherosclerosis of coronary artery bypass graft(s) without angina pectoris; I11.0 Hypertensive heart disease with heart failure; I50.20 Unspecified systolic (congestive) heart failure; E78.5 Hyperlipidemia, unspecified; Z95.810 Presence of automatic (implantable) cardiac defibrillator; Z87.891 Personal history of nicotine dependence | CPT/HCPCS: 99214 ==

== ENCOUNTER → 2023-09-25 16:47 | Outpatient (BNVA) | payer MEDICARE, SELFPAY | PROVIDERS: PCP Family Medicine; Visit Provider Internal Medicine | DX: Z45.02 Encounter for adjustment and management of automatic implantable cardiac defibrillator (principal) | CPT/HCPCS: 93296 ==

== ENCOUNTER → 2023-12-30 08:34 | Outpatient (BNVA) | payer MEDICARE, SELFPAY | PROVIDERS: PCP Family Medicine; Visit Provider Family Medicine | DX: I10 Essential (primary) hypertension (principal); I25.810 Atherosclerosis of coronary artery bypass graft(s) without angina pectoris; E78.5 Hyperlipidemia, unspecified; E11.9 Type 2 diabetes mellitus without complications; I25.9 Chronic ischemic heart disease, unspecified | CPT/HCPCS: 80053; 80061; 83036; 85025 ==

== ENCOUNTER → 2024-02-18 15:23 | Outpatient (BNVA) | payer MEDICARE, SELFPAY | PROVIDERS: PCP Family Medicine; Visit Provider Internal Medicine | DX: I25.10 Atherosclerotic heart disease of native coronary artery without angina pectoris (principal); E78.5 Hyperlipidemia, unspecified; Z95.810 Presence of automatic (implantable) cardiac defibrillator; Z87.891 Personal history of nicotine dependence; I11.0 Hypertensive heart disease with heart failure; I50.23 Acute on chronic systolic (congestive) heart failure | CPT/HCPCS: 99214 ==

== ENCOUNTER → 2024-03-24 11:51 | Outpatient (BNVA) | payer MEDICARE, SELFPAY | PROVIDERS: PCP Family Medicine; Visit Provider Internal Medicine Cardiovascular Disease | DX: Z45.02 Encounter for adjustment and management of automatic implantable cardiac defibrillator (principal) | CPT/HCPCS: 93296 ==

== ENCOUNTER → 2024-03-31 09:19 | Outpatient (BNVA) | payer MEDICARE, SELFPAY | PROVIDERS: PCP Family Medicine; Visit Provider Family Medicine | DX: I10 Essential (primary) hypertension (principal); I25.9 Chronic ischemic heart disease, unspecified; I25.810 Atherosclerosis of coronary artery bypass graft(s) without angina pectoris; E11.9 Type 2 diabetes mellitus without complications; M17.0 Bilateral primary osteoarthritis of knee | CPT/HCPCS: 80053; 80061; 83036; 84550; 85025; 86140 ==

== ENCOUNTER → 2024-06-15 14:30 | Outpatient (BNVA) | payer MEDICARE, SELFPAY | PROVIDERS: PCP Family Medicine; Visit Provider Internal Medicine | DX: I25.810 Atherosclerosis of coronary artery bypass graft(s) without angina pectoris (principal); I11.0 Hypertensive heart disease with heart failure; I50.9 Heart failure, unspecified; E78.5 Hyperlipidemia, unspecified; Z95.810 Presence of automatic (implantable) cardiac defibrillator | CPT/HCPCS: 99214 ==

== ENCOUNTER → 2024-06-30 10:12 | Outpatient (BNVA) | payer MEDICARE, SELFPAY | PROVIDERS: PCP Family Medicine; Visit Provider Family Medicine | DX: I25.9 Chronic ischemic heart disease, unspecified (principal); I10 Essential (primary) hypertension; I25.810 Atherosclerosis of coronary artery bypass graft(s) without angina pectoris; E78.5 Hyperlipidemia, unspecified; E11.9 Type 2 diabetes mellitus without complications | CPT/HCPCS: 80053; 80061; 83036; 85025 ==

== ENCOUNTER 2024-07-12 08:21 | Outpatient (CLI) | payer MEDICARE, SELFPAY ==
--- NOTE | 2024-07-12 08:30 | USCV_ITS ---
Sonu Ferrer Age: 84 Gender: M : 1940 Exam Date: 07/12/2024 09:01 Ordering Phys: Severiano Whalen M.D ([email or web address]) Technologist: CT Exam Location: [facility] [place] Indication: cad,cp,cabg BP: 106 / 64 HR: 58 Rhythm: Sinus Technical Quality: Adequate MEASUREMENTS (Male / Female) Normal Values 2D ECHO LVOT Diameter 2.1 cm LV Ejection Fraction MOD 4C 30.5 % LV Ejection Fraction MOD 2C 28.7 % LV Ejection Fraction 2C AL 31.4 % LA Diameter 4.4 cm RA Systolic Volume 4C AL 53.0 ml RA Systolic Volume 4C MOD 51.5 ml LA Sys Volume AL 101.5 cm cubed LA Sys Volume Index AL 44.9 cm cubed/m squared Aorta at Sinotubular Diameter 2.8 cm M-MODE LA Ao Ratio MM 2.3 AV Cusp Separation MM 1.4 cm DOPPLER AV Peak Velocity 166.0 cm/s LVOT Peak Velocity 104.0 cm/s AV Area Cont Eq vti 2.2 cm squared AV Area Cont Eq pk 2.1 cm squared MV Peak Velocity 95.0 cm/s TR Peak Velocity 204.0 cm/s TR Peak Gradient 16.6 mmHg TR Mean Velocity 131.0 cm/s TR Mean Gradient 8.6 mmHg TR Velocity Time Integral 39.0 cm TV Peak E Velocity 59.0 cm/s PV Peak Velocity 85.0 cm/s FINDINGS Left Ventricle LV systolic function is severely reduced with EF of 25-30%. Severe global hypokinesis. Grade 1 diastolic dysfunction. Right Ventricle RV is mildly hypokinetic. Pacemaker lead is seen Right Atrium Normal in size Left Atrium Dilated Mitral Valve Structurally normal mitral valve. Mild mitral regurgitation. Aortic Valve Aortic valve is thickened. No significant stenosis or regurgitation. Tricuspid Valve Mild tricuspid regurgitation. Insufficient TR jet to calculate RVSP Pulmonic Valve Not well visualized Pericardium Normal Aorta Normal in size IVC Not well visualized CONCLUSIONS LV systolic function is severely reduced with EF of 25-30%. Grade 1 diastolic dysfunction. RV is mildly hypokinetic Left atrial dilation Mild mitral regurgitation. Mild tricuspid regurgitation Compared to prior echocardiogram from 2022, LV systolic function appears to have decreased now. Severiano Whalen MD (Electronically Signed) Final Date: 18 July 2024 11:45 S
== END 2024-07-12 08:22 | disposition home or self-care (01) ==
PROVIDERS: PCP Family Medicine; Visit Provider Internal Medicine
DX: R06.02 Shortness of breath (principal); R93.1 Abnormal findings on diagnostic imaging of heart and coronary circulation; I34.0 Nonrheumatic mitral (valve) insufficiency; I35.8 Other nonrheumatic aortic valve disorders; I07.1 Rheumatic tricuspid insufficiency
CPT/HCPCS: 93306

== ENCOUNTER → 2024-08-13 10:50 | Outpatient (BNVA) | payer MEDICARE, SELFPAY | PROVIDERS: PCP Family Medicine; Visit Provider Internal Medicine | DX: I25.10 Atherosclerotic heart disease of native coronary artery without angina pectoris (principal); Z95.810 Presence of automatic (implantable) cardiac defibrillator; I11.0 Hypertensive heart disease with heart failure; I50.23 Acute on chronic systolic (congestive) heart failure; E78.5 Hyperlipidemia, unspecified; Z87.891 Personal history of nicotine dependence; R07.9 Chest pain, unspecified; R58 Hemorrhage, not elsewhere classified | CPT/HCPCS: 36415; 80048; 85025; 85610; 99204 ==

== ENCOUNTER 2024-08-31 09:08 | Outpatient (CLI) | payer MEDICARE, SELFPAY ==
[2024-08-31] VITALS (10 sets, daily range): BP systolic 111–144; BP diastolic 55–76; PULSE 57–60; RESP 13–18; TEMP 36.6–36.7; O2SAT 94–96; BMI 29.1
--- NOTE | 2024-08-31 09:00 | XACV_ITS ---
Ht: 185 cm Wt: 100 kg BSA: 2.29 m2 Gender: Male : 1940 Any Known Allergies: Other Exam Priority: Routine Indication(s): - Decreased LV systolic function Procedure(s): Procedure Description: Diagnostic procedure Procedure Description: Left Heart Catheterization Procedure Description: Left ventriculography Procedure Description: GE Graft Catheterization Procedure Description: Coronary Angiography Diagnostic Cath Status: Elective Diagnostic Findings * Left Main has no significant disease. * Circumflex has patent prior stents. * Mid RCA has severe stenosis. 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 * Bypass grafts: GE to LAD is patent. GE giving collaterals to distal RCA as well. SVG grafts not injected as known occluded. * Proximal Left Anterior Descending to Mid Left Anterior Descending: total occlusion, JANEE: 0 flow. * Coronary angiography shows right dominance. Conclusions 1. Severe multivessel [place] coronary arteries. [place] Left circumflex artery and GE to LAD is patent. 2. Patient has prior CABG. 3. Moderate left ventricular systolic dysfunction. Ejection fraction of 35%. Recommendations * Aggressive risk factor modification. Guideline directed medical therapy for heart failure. * Outpatient cardiology follow up in 2 weeks. Interventional RX Recommendation: medical therapy and/or counseling Diagnostic RX Recommendation: medical therapy and/or counseling Ventriculography Ejection Fraction: 35.0 % Pressures Phase:Rest AO : / ( 0 ) @ 12:41:00 PM 2 / -1 ( 0 ) @ 12:41:00 PM 176 / 63 ( 105 ) @ 12:47:00 PM 193 / 70 ( 115 ) @ 12:47:00 PM 100 / 63 ( 77 ) @ 12:47:00 PM 189 / 25 ( 80 ) @ 12:59:00 PM 143 / 47 ( 80 ) @ 12:59:00 PM 133 / 51 ( 80 ) @ 12:59:00 PM LV : 130 / -5 / 4 @ 12:58:00 PM 134 / -7 / 11 @ 12:59:00 PM 132 / -7 / 8 @ 12:59:00 PM Valves Phase:DefaultPhase AV : 0.0 @ 12:10:55 PM AV Mean Gradient: 0.0 @ 12:10:55 PM Clinical Evaluation EBL: 5mL-10mL Procedural Details Procedure Consent Obtained. Current Diagnosis : Chest Pain. Admit Source: Out Patient. Pre-Procedure Time Out. Identified patient by full name and date of as verbalized by the patient/guarantor. Does the consent match the physician's order: Yes. Accurate & Complete Informed Consent: Yes. Inpatient/Outpatient History & Physical on Chart: Yes. If H&P is completed, is and addenduem needed: No; If yes, is the addendum complete: N/A. Visualize and Verify Site with Patient/Guarantor: N/A. Relevant Radiology Images available: N/A. The risks, benefits, and alternatives of sedation and/or procedure were discussed by physician. The patient agrees to continue. Procedure started. [facility] Clinical Fraility Score: 4: Vulnerable. 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 Chest Pain Symptom Assessment: Atypical Angina. Cardiovascular Instability: No. Correct patient, site and procedure confirmed by cath team. Current diagnosis: Chest Pain; LV Dysfunction. PERRLA. Strong, equal hand order tracer bilaterally. Lungs clear x 5 lobes. IV Site on Arrival: 20 gauge in the left anticubital. IV Fluids: 0.9% NaCl at KVO. 0 mL infused prior to warehouse laborer. Pre Procedural Pulses: bilateral posterior tibial was Doppled. Pre Procedural Pulses: bilateral dorsalis pedis was Doppled. Pre Procedural Pulses: bilateral radial was 3+. Oxygen started at 3liters/min via nasal canula. bilateral groins was prepped with chloroprep then draped in the usual sterile fashion. Physician notified. Baseline sample Acquired. HR: 60 BPM. Physician arrived. Physician scrubbed in. Family updated by MD prior to the start of the procedure. Immediate Pre-Procedure Time Out. Correct Patient: Yes; Correct Procedure: Yes; Correct Site: Yes; Correct Patient Position: Yes; Correct Supplies: Yes; Dried Flammable Prep: Yes; Blood Products Available: N/A;. Lidocaine 1% infiltrated to the right groin. Arterial access obtained. A 5 iraqi JR4 catheter in over wire. Exchange wire out. Glidewire inserted. JR 4 advanced into proper position. Cartwright wire removed. Multiple views taken of right coronary artery. Redirected to the GE. SVG are known to be occluded. GE to LAD visualized. Catheter removed over the exchange wire. A 5 ir[place]i JL4 catheter in over wire. Multiple views taken of left coronary artery. Catheter removed over the exchange wire. A 5 iraqi Angled Pig catheter in over wire. EDP Sample taken: LV 130/-6,4; HR: 48 BPM; SpO2: 98%. LV gram performed in SMITH @ 10 mL/second for a total of 30 mL. Patient EF: Abnormal. EDP Sample taken: LV 134/-8,11; HR: 60 BPM; SpO2: 99%. Pullback taken: LV 132/-8,8; AO 189/25(80); Mean: 0mmHg, Peak to Peak: 0mmHg, SEP: 19sec/min; HR: 63 BPM; SpO2: 98%. Catheter removed over the wire. Physician review of films. A Right femoral angiogram was performed to determine safe placement of closure device. Contrast type used: Omnipaque 300 mg/mL, 150 mL bottle. [id number]. Post-op diagnosis: Patent GE to LAD and [place] circumflex. A Mynx was successful obtaining hemostatsis at the Right Femoral artery insertion site. Mynx placed without complications. No signs or symptoms of hematoma noted. Sterile dressing applied per usual sterile fashion. LOT # [id number] EXP 06/23/26. Post Procedure: Pulses reassessed and unchanged. PERRLA. Strong, equal hand order tracer bilaterally. No VTE prophylaxis required. Medication's Wasted: Lidocaine 1% = 10 ml , Versed =1 mg , Heparin = 1000 units. Total IV fluids: 20 mL. Fluoro: 7:04. Complications: None. Estimated blood loss: 5mL-10mL. Responsiveness - Normal response to verbal stimuli; alert and oriented, PERRLA. Airway - Unaffected, no intervention required; spontaneous ventilation. Circulation: W/N/L, pulses unchanged. Nausea/Vomiting: No. Procedure completed. Patient transferred by bed to CPRU. Access Site Site: Right Femoral artery Sheath Size: 6 Fr Hemostasis Method: Mynx Hemostasis Success: Successful Procedure Medications Start: 11:40 AM Stop: 11:40 AM Medication: Versed Amount: 1 mg Route: I.V. Start: 11:40 AM Stop: 11:40 AM Medication: Fentanyl Amount: 50 mcg Route: I.V. Start: 12:00 PM Stop: 12:00 PM Medication: Fentanyl Amount: 25 mcg Route: I.V. Start: 12:04 PM Stop: 12:04 PM Medication: Fentanyl Amount: 25 mcg Route: I.V. I, the attending physician, have reviewed and verified all procedure medications. Yes, all medications given per verbal order History/Risk Factors Hypertension: Yes Dyslipidemia: Yes Peripheral Arterial Disease (PAD): No Myocardial Infarction (TX): No Obesity: No Renal Disease: No Tobacco Use: Former Prior Interventions PCI: Yes CABG: Yes Valve Surgery: No Date of PCI: 10/08/2022 Report Signatures Finalized by Severiano Whalen MD on 09/12/2024 11:20 AM
[2024-08-31] MEDS: aspirin 325 mg Tablet PO (10:00)
[2024-08-31] MEDS: diphenhydrAMINE 50 mg Capsule PO (10:00)
--- NOTE | 2024-08-31 11:30 | P.HPUD_ITS ---
Surgery/Procedure H&P Update DATE OF PROCEDURE: August 31, 2024 DATE H&P PERFORMED: 08/13/24 H&P UPDATE INFORMATION: I have reviewed H&P completed within last 30 days, I have examined patient prior to procedure and No changes to prior documentation PREOP DIAGNOSIS: LV dysfunction PRIMARY INDICATION FOR PROCEDURE: LV dysfunction PLANNED PROCEDURE: Operation Date: 08/31/24 10:00 Proposed Procedures p Cardiac Catheterization - [facility] w/wo LV & Coros(Left) - Severiano Whalen M.D Possible percutaneous coronary intervention PATIENT REASSESSED PRIOR TO SEDATION, WITH NO CHANGE NOTED: Yes PHYSICAL EXAM: alert, oriented x 3, clear to auscultation bilaterally and regular rate & rhythm AIRWAY EVAL/ANESTHESIA PLAN: normal airway, ASA III, Local Anesthesia, Risks, benefits & alternatives of sedation and/or procedure discussed and Patient agrees to continue as planned ADDITIONAL INFORMATION: Moderate sedation
--- NOTE | 2024-08-31 12:06 | PM.PROC ---
Procedure Note: Date of procedure: 08/31/24 Pre-procedure diagnosis: LV dysfunction Post-procedure diagnosis: other (Patent GE to LAD. Patent [place] left circumflex artery) Procedure: Left main artery is patent. LAD is occluded. Patent left circumflex artery stents. GE to LAD is patent. RCA is totally occluded. SVG grafts not injected as they are known occluded Medical therapy Performing Provider: Severiano Whalen Estimated blood loss (mL): 5 Complications: None Condition: stable Disposition: same day Coding Level of Care Code Acute Code for Chg Fwteodora
--- NOTE | 2024-08-31 14:04 | PC.NURSE ---
Patient transferred to CSU from analytical lab technician at 1405.
== END 2024-08-31 19:28 | disposition home or self-care (01) ==
LOC: CCL 12:13 → CSU 13:51
PROVIDERS: PCP Family Medicine; Visit Provider Internal Medicine
DX: I25.810 Atherosclerosis of coronary artery bypass graft(s) without angina pectoris (principal); I11.0 Hypertensive heart disease with heart failure; I50.20 Unspecified systolic (congestive) heart failure; I25.10 Atherosclerotic heart disease of native coronary artery without angina pectoris; Z95.1 Presence of aortocoronary bypass graft; I25.82 Chronic total occlusion of coronary artery; E78.5 Hyperlipidemia, unspecified; Z87.891 Personal history of nicotine dependence; Z79.82 Long term (current) use of aspirin; E11.9 Type 2 diabetes mellitus without complications; I25.2 Old myocardial infarction
CPT/HCPCS: 36415; 93459; 99152; 99153; C1760; C1769; C1887; C1894; G0269; J1644; J2250; J3010; J3490; J7030; J9999; Q0163; Q9967

== ENCOUNTER → 2024-09-14 14:20 | Outpatient (BNVA) | payer MEDICARE, SELFPAY | PROVIDERS: PCP Family Medicine; Visit Provider Nurse Practitioner Family | DX: Z09 Encounter for follow-up examination after completed treatment for conditions other than malignant neoplasm (principal); I25.10 Atherosclerotic heart disease of native coronary artery without angina pectoris; I11.0 Hypertensive heart disease with heart failure; I50.23 Acute on chronic systolic (congestive) heart failure; Z79.01 Long term (current) use of anticoagulants; Z79.82 Long term (current) use of aspirin; Z95.5 Presence of coronary angioplasty implant and graft; Z95.0 Presence of cardiac pacemaker; I25.2 Old myocardial infarction; Z87.891 Personal history of nicotine dependence | CPT/HCPCS: 99214 ==

== ENCOUNTER → 2024-09-22 09:27 | Outpatient (BNVA) | payer MEDICARE, SELFPAY | PROVIDERS: PCP Family Medicine; Visit Provider Internal Medicine Cardiovascular Disease | DX: Z45.02 Encounter for adjustment and management of automatic implantable cardiac defibrillator (principal) | CPT/HCPCS: 93296 ==

== ENCOUNTER → 2024-12-22 09:28 | Outpatient (BNVA) | payer MEDICARE, SELFPAY | PROVIDERS: PCP Family Medicine; Visit Provider Internal Medicine Cardiovascular Disease | DX: Z45.02 Encounter for adjustment and management of automatic implantable cardiac defibrillator (principal) | CPT/HCPCS: 93296 ==

== ENCOUNTER → 2025-01-12 09:37 | Outpatient (BNVA) | payer MEDICARE, SELFPAY | PROVIDERS: PCP Family Medicine; Visit Provider Family Medicine | DX: I25.9 Chronic ischemic heart disease, unspecified (principal); I10 Essential (primary) hypertension; I25.810 Atherosclerosis of coronary artery bypass graft(s) without angina pectoris; E78.5 Hyperlipidemia, unspecified; E11.9 Type 2 diabetes mellitus without complications | CPT/HCPCS: 80053; 80061; 83036; 85025 ==

== ENCOUNTER → 2025-01-17 15:50 | Outpatient (BNVA) | payer MEDICARE, SELFPAY | PROVIDERS: PCP Family Medicine; Visit Provider Family Medicine | DX: L98.9 Disorder of the skin and subcutaneous tissue, unspecified (principal); L57.0 Actinic keratosis | CPT/HCPCS: 88304 ==

== ENCOUNTER → 2025-02-16 14:40 | Outpatient (BNVA) | payer MEDICARE, SELFPAY | PROVIDERS: PCP Family Medicine; Visit Provider Internal Medicine | DX: I25.10 Atherosclerotic heart disease of native coronary artery without angina pectoris (principal); Z95.810 Presence of automatic (implantable) cardiac defibrillator; Z95.1 Presence of aortocoronary bypass graft; Z95.5 Presence of coronary angioplasty implant and graft; I11.0 Hypertensive heart disease with heart failure; I50.20 Unspecified systolic (congestive) heart failure | CPT/HCPCS: 36415; 80048; 83880; 99214 ==

== ENCOUNTER 2025-03-15 09:44 | Outpatient (CLI) | payer MEDICARE, SELFPAY ==
[2025-03-15 12:35] LABS: Anion Gap 14.2 (5-19); Blood Urea Nitrogen 19 mg/dL (8-23); Calcium 9.2 mg/dL (8.5-10.5); Carbon Dioxide 27 mmol/L (22-29); Chloride 104 mmol/L (98-107); Glucose 103 mg/dL (65-115); NT Pro B Type Natriuretic Pept 558 pg/mL (0-450); Osmolality Calculated 295 mOsm/kg (285-295); Potassium 4.2 mmol/L (3.5-5.1); Sodium 141 mmol/L (136-145)
== END 2025-03-15 09:45 | disposition home or self-care (01) ==
PROVIDERS: PCP Family Medicine; Visit Provider Internal Medicine
DX: I10 Essential (primary) hypertension (principal); R06.02 Shortness of breath
CPT/HCPCS: 36415; 80048; 83880